=== PATIENT | male | born 1980 | race Hispanic/Latino ===

== ENCOUNTER 2016-05-16 16:05 | Emergency (ER) | payer SELFPAY ==
[~2016-05-16] VITALS: Ht 167.6 cm; Wt 84.1 kg
[2016-05-16 16:26] VITALS: BP 143/90; PULSE 71; RESP 18; O2SAT 99
[2016-05-16] MEDS ORDERED: HYDROcodone-APAP 5-325 mg Tablet PO ONE (17:10)
--- NOTE | 2016-05-16 17:10 | ED.REPORT ---
HPI-Extremity Problem Upper Date of Service May 16, 2016 ED Provider: Jovita Thomson Nursing Notes Stated Complaint: LEFT HAND LAC Chief Complaint: Extremity Trauma Nursing Notes Reviewed: Yes Allergies: Coded Allergies: No Known Allergies (Unverified , 05/16/16) Scheduled Cephalexin (Cephalexin) 500 Mg Tablet 500 MG PO BID Scheduled PRN Hydrocodone-Acetaminophen 5-325 mg (Hydrocodone-Acetaminophen 5-325 mg) 1 Each Tablet 1 TABLET PO Q4H PRN PRN For Pain General Time Seen by MD: 16:55 Chief Complaint Finger injury left 2, Finger injury left 3 caught fingers in table saw cutting wood at 1600 today. Hx Obtained From: Patient Arrived By: Walk-in Onset Occurred: Just prior to arrival Symptom Duration: Since onset Caused by: Accidental Context: Occurred at: Home injury Location: : Finger left 2: Finger left 3 Quality: Aching Severity: Current: Moderate Severity: Maximum: Severe Associated with: Reports: Bleeding, Joint swelling, Swelling, Denies: Fever, Nausea, Numb extremities, Unable to move joint, Vomiting, Weakness Pertinent Negative: Pt denies other symptoms Exacerbated by: Range of motion, Movement Pertinent Negative: Relieved by nothing Immunizations: All up to date, Tetanus up to date Recent Healthcare: No recent doctor visit Similar Sx Previous: No Past Medical History Past Medical History healthy Past Surgical History none Social History Other Social History: Good social support Review of Systems Basic Review of Systems Eyes: Vision NL ENT: Hearing NL, No pain, No nasal congestion, No pharyngeal pain Respiratory: No shortness of breath, No cough, No wheeze Cardiovascular: No chest pain, No dyspnea on exertion, No orthopnea, No palpitations GI: No abdominal pain, No anorexia, No nausea, No vomiting : No dysuria, No frequency Hematologic: No bleeding, No bruising Endocrine: No cold intolerance, No heat intolerance, No weight gain, No weight loss Allergy / Immune: No allergy Psychiatric: Normal thought content Constitutional: Denies: Fever Musculoskeletal: Reports: Extremity pain Skin: Reports Swelling Neurologic: Denies: Focal weakness, Headache, Numbness Complete sys rev & neg: except as marked. Physical Exam Initial Vital Signs Vital Signs (First) Date Time Temp Pulse Resp B/P Pulse Ox O2 Delivery O2 Flow Rate FiO2 05/16/16 16:26 36.6 71 18 143/90 99 Room Air Initial VS: Reviewed General/Constitutional: Well-developed, Well-nourished Head / Eyes: Atraumatic, Normocephalic, PERRL ENT: Mucous membranes moist, Conjunctiva normal, No scleral icterus Neck: Supple, Non-tender, Full range of motion Respiratory: No respiratory distress Cardiovascular: Intact distal pulses Abdomen / GI: No distention Lymphatic: No lymphadenopathy Lower Extremities: Vascular intact, Neuro intact, No swelling, No tenderness Skin: Warm, Dry, No cyanosis Neurologic: Alert, Oriented, Nonfocal Psychiatric: Mood/affect normal, Behavior normal, Normal thought content Finger Exam : Finger Exam: Positive: Finger name... (L index), Open fracture present, Swelling present... (Moderate), Tenderness present... (Moderate), Negative: Neuro deficit present, ROM reduced, Tendon injury extensor, Tendon injury flexor Joint above & below: affected area is NL. Trauma / Burn / Environmental: Positive: Laceration irregular jagged lacerations to left index and left middle fingers, no nailbed involvement, full ROM, states full sensation, bleeding controlled with dressing Interpretation & Diagnostics X-Ray Interpretation Xray Interpretation: FINDINGS: Bones: There is a mildly displaced fracture of the distal phalanx of the second digit. Soft tissues: No suspicious soft tissue calcifications. IMPRESSION: Second digit fracture. Dictated by: Lex Staley M.D. on 05/16/2016 at 17:51 Study Performed: fingers, left Interpretation / Wet Read by: Interpret - Radiologist Procedures Laceration Management Laceration Management: fingers anesthesized by digital block, wounds irrigated with copious NS, explored for FB, none seen, wound margins tacked together, very irregular stellate type wounds. Bulky dressing applied. Pt tolerated well. Procedure Performed by: Allied health pract Consent / Setup / Site Prep: Consent from patient, Time-out performed, Hand hygiene observed, Stand sterile technique Location of Wound: left index and middle fingers Wound Length: 5 cm (total combined length) Local Anesthesia: Bupivacaine 0.5% (digital blocks) Digital Block: Yes Digit Involved: Index finger left, Middle finger left Wound Preparation: Shurclens, Normal saline Debridement: Minimal Irrigation: Copious Foreign Body Explore / Removal: Explored for foreign body (none seen) Repair Skin: ___ O (5), Nylon # Sutures - Skin: 8 Closure Layers: 1 Suture Technique: Simple Post-Procedure / Complications: Antibiotic oint applied, Dressing applied, No complications, Condition improved Re-Eval/Medical Decision Consultation : Referral / Consult Name: Sung Bowen MD Consulted With: Orthopedic Cyber Security Engineer: Will see in office, Agrees with eval, Agrees with plan Discharge & Departure Impression: Primary Impression: Finger laceration with complication Additional Impression: Fracture, finger, distal phalanx, open Disposition: Home Discharge Condition All VS Reviewed: Yes Condition: Improved Patient Instructions: Finger Laceration (ED) Additional Instructions: You have several cuts and a broken bone in your finger. Please leave the dressing in place until you can be seen by Orthopedics. They will contact you regarding a time to be seen in their office. Take the antibiotics as directed and use the pain medication as needed. Return to the ER if you feel this is getting worse, starts bleeding or your fingers become blue or white. Referrals: NOPCP (PCP) Sung Bowen MD EDSupervising Provider for APC: Hermes Goncalves Lora L ARNP May 16, 2016 17:10
--- NOTE | 2016-05-16 17:55 | DRSVH ---
PROCEDURE: X-RAY FINGERS, TWO VIEWS INDICATIONS: cut with tablesaw TECHNIQUE: AP hand, 2 views of the left second and third finger(s) acquired. COMPARISON: None. FINDINGS: Bones: There is a mildly displaced fracture of the distal phalanx of the second digit. Soft tissues: No suspicious soft tissue calcifications. IMPRESSION: Second digit fracture. Dictated by: Lex Staley M.D. on 05/16/2016 at 17:51 Approved by: Lex Staley M.D. on 05/16/2016 at 17:52
[2016-05-16] MEDS ORDERED: Bupivacaine-MPF 0.5% 30 mL Inj ONE (18:05)
[2016-05-16] MEDS ORDERED: CEPH500T PO (19:00)
[2016-05-16] MEDS ORDERED: HYDR-4003 PO (19:00)
[2016-05-16 19:37] VITALS: BP 135/88; PULSE 69; RESP 18; O2SAT 99
== END 2016-05-16 19:39 | disposition home or self-care (01) ==
LOC: SED 16:05
DX: S61.211A Laceration without foreign body of left index finger without damage to nail, initial encounter (principal); S61.213A Laceration without foreign body of left middle finger without damage to nail, initial encounter; S62.631A Displaced fracture of distal phalanx of left index finger, initial encounter for closed fracture; W23.0XXA Caught, crushed, jammed, or pinched between moving objects, initial encounter; W31.2XXA Contact with powered woodworking and forming machines, initial encounter; Y92.009 Unspecified place in unspecified non-institutional (private) residence as the place of occurrence of the external cause; Y93.89 Activity, other specified; Y99.8 Other external cause status